=== PATIENT | female | born 1950 | race African-American/Black ===

== ENCOUNTER 2021-07-25 05:58 | Inpatient (IN) | payer MEDICARE, BC ==
[~2021-07-25] VITALS: Ht 157.5 cm; Wt 88.5 kg
[2021-07-25 07:54] LABS: CHLORIDE 108 mEq/L (98-107)
[2021-07-25] MEDS ORDERED: SODIUM CHLORIDE 0.9% 500 ML IV ONE (08:00)
[2021-07-25 08:05] LABS: BASOPHILS % 0.3 % (0.0-2.0); EOSINOPHILS % 0.2 % (0.0-5.0); HEMATOCRIT. 45.6 % (36.0-48.0); HEMOGLOBIN. 15.5 g/dL (12.0-16.0); LYMPHOCYTES % 16.7 % (20.0-50.0); MEAN CORPUSCULAR HEMOGLOBIN 27.3 pg (28.0-32.0); MEAN CORPUSCULAR VOLUME 80.3 fL (81.0-99.0); MEAN PLATELET VOLUME 9.4 fl (7.4-10.4); MONOCYTES % 8.4 % (2.0-8.0); NEUTROPHILS % 74.4 % (40.0-76.0); PLATELET 169 x1000/uL (130-400); RED BLOOD CELL COUNT 5.68 mill/uL (4.2-5.4); RED CELL DISTRIBUTION WIDTH 14.4 % (11.6-14.6)
[2021-07-25] MEDS ORDERED: DILTIAZEM HCL 5MG/ML 5ML VIAL IV ONE (08:45)
[2021-07-25] MEDS ORDERED: DILTIAZEM HCL 60MG TABLET PO ONE (08:45)
[2021-07-25] MEDS ORDERED: ASPIRIN 325MG EC TABLET PO ONE (08:45)
[2021-07-25] MEDS ORDERED: LIDOCAINE HCL 1% 10 MG/ML 10ML VIAL ONE (11:04)
[2021-07-25] MEDS ORDERED: ZOLPIDEM TARTRATE 5MG TABLET PO PRN (11:45)
[2021-07-25] MEDS ORDERED: KETOROLAC 15MG/ML VIAL IV PRN (11:45)
[2021-07-25] MEDS ORDERED: NITROGLYCERIN 0.4MG TABLET SL SL PRN (11:45)
[2021-07-25] MEDS ORDERED: ACETAMINOPHEN 325MG TABLET PO PRN ×2 (11:45)
[2021-07-25] MEDS ORDERED: CLONIDINE 0.1MG TABLET PO PRN (11:45)
[2021-07-25] MEDS ORDERED: ONDANSETRON HCL 4MG/2ML INJ IV PRN (11:45)
[2021-07-25] MEDS ORDERED: IPRATROPIUM/ALBUTEROL 0.5-3(2.5)MG/3ML NEB NEB PRN (11:45)
[2021-07-25] MEDS ORDERED: GUAIFENESIN 200MG/10ML SUGAR FREE UDC PO PRN (11:45)
[2021-07-25] MEDS ORDERED: DOCUSATE SODIUM 100MG CAPSULE PO PRN (11:45)
[2021-07-25] MEDS ORDERED: MAGNESIUM/ALUMINUM HYDROXIDE/SIMETHICONE 30ML UDC PO PRN (11:45)
[2021-07-25] MEDS ORDERED: ASPIRIN 325MG EC TABLET PO NR (11:45)
[2021-07-25] MEDS ORDERED: TRAMADOL 50MG TABLET PO PRN (11:45)
[2021-07-25] MEDS ORDERED: DILTIAZEM HCL 5MG/ML 5ML VIAL IV NR (12:00)
[2021-07-25 13:02] LABS: ETHANOL BLOOD < 10 mg/dL
[2021-07-25 13:04] LABS: TOTAL IRON BINDING CAPACITY 370 ug/dL (250-450)
[2021-07-25 13:05] LABS: LDL CHOLESTEROL 66 mg/dL (5-100)
[2021-07-25 13:06] LABS: HDL CHOLESTEROL 52 mg/dL (40-59)
[2021-07-25 13:07] LABS: T4 FREE 1.19 ng/dL (0.76-1.46)
[2021-07-25 14:29] LABS: FOLIC ACID (FOLATE) SERUM >20 ng/mL ng/mL (>5.38)
[2021-07-25] MEDS ORDERED: IOHEXOL-350 100 ML BOTTLE ONE (14:36)
[2021-07-25 14:40] LABS: VITAMIN B12 SERUM 1215 pg/mL (211-911)
[2021-07-25 16:06] LABS: CREATINE KINASE MB FRACTION 1.9 ng/mL (0.5-3.6)
[2021-07-25 19:05] VITALS: BP 155/99
[2021-07-25 19:30] VITALS: BP 148/74
[2021-07-25 20:00] VITALS: BP 148/74
[2021-07-25] MEDS: SPIRONOLACTONE 25MG TABLET PO SCH (21:50)
[2021-07-25] MEDS: FUROSEMIDE 40MG/4ML VIAL IVP SCH (21:50)
[2021-07-25] MEDS: ASCORBIC ACID 500 MG TABLET PO SCH (21:50)
[2021-07-25] MEDS: FAMOTIDINE 20MG TABLET PO SCH (21:51)
[2021-07-25] MEDS ORDERED: METO-539 MT (23:33)
[2021-07-25] MEDS ORDERED: APIX5TAB MT (23:33)
[2021-07-25 23:34] LABS: CREATINE KINASE MB FRACTION 2.9 ng/mL (0.5-3.6)
[2021-07-25] MEDS ORDERED: LEVO125T8 MT (23:35)
[2021-07-25] MEDS ORDERED: SIMV-43 MT (23:35)
[2021-07-25] MEDS ORDERED: SERT-422 MT (23:35)
[2021-07-26] VITALS: BP 160/87
[2021-07-26 04:00] VITALS: BP 145/73
[2021-07-26] MEDS: CARVEDILOL 3.125 MG TABLET PO SCH ×2 (05:49→17:57)
[2021-07-26] MEDS: APIXABAN 5 MG TABLET PO SCH ×2 (05:49→19:08)
[2021-07-26 07:13] LABS: CHLORIDE 108 mEq/L (98-107)
[2021-07-26 07:30] LABS: PHOSPHORUS 3.4 mg/dL (2.5-4.9)
[2021-07-26 07:35] LABS: BASOPHILS % 0.6 % (0.0-2.0); EOSINOPHILS % 0.9 % (0.0-5.0); HEMOGLOBIN. 15.4 g/dL (12.0-16.0); LYMPHOCYTES % 30.3 % (20.0-50.0); MEAN CORPUSCULAR HEMOGLOBIN 27.4 pg (28.0-32.0); MEAN CORPUSCULAR VOLUME 80.1 fL (81.0-99.0); MONOCYTES % 8.6 % (2.0-8.0); NEUTROPHILS % 59.6 % (40.0-76.0); RED BLOOD CELL COUNT 5.62 mill/uL (4.2-5.4); RED CELL DISTRIBUTION WIDTH 14.4 % (11.6-14.6)
[2021-07-26 08:00] VITALS: BP 135/67
[2021-07-26] MEDS: ASCORBIC ACID 500 MG TABLET PO SCH ×2 (09:37→21:44)
[2021-07-26] MEDS: ASPIRIN 325MG EC TABLET PO SCH (09:37)
[2021-07-26] MEDS: SPIRONOLACTONE 25MG TABLET PO SCH ×2 (09:38→21:44)
[2021-07-26] MEDS: FAMOTIDINE 20MG TABLET PO SCH ×2 (09:38→21:44)
[2021-07-26] MEDS: FUROSEMIDE 40MG/4ML VIAL IVP SCH ×2 (09:38→21:43)
[2021-07-26] MEDS: ZINC SULFATE 220 MG ( 50 ) CAPSULE PO SCH (09:38)
[2021-07-26 12:00] VITALS: BP 134/93
[2021-07-26 13:48] LABS: PLATELET 127 x1000/uL (130-400)
[2021-07-26] MEDS ORDERED: DIGOXIN 500MCG/2ML AMP IV NR (14:27)
[2021-07-26 16:00] VITALS: BP 144/75
[2021-07-26 20:00] VITALS: BP 143/66
[2021-07-27] VITALS: BP 134/67
[2021-07-27 04:00] VITALS: BP 129/75
[2021-07-27] MEDS: APIXABAN 5 MG TABLET PO SCH ×2 (06:37→17:12)
[2021-07-27] MEDS: CARVEDILOL 3.125 MG TABLET PO SCH ×2 (06:45→17:13)
[2021-07-27 08:00] VITALS: BP 158/68
[2021-07-27] MEDS: ASPIRIN 325MG EC TABLET PO SCH (08:19)
[2021-07-27] MEDS: FAMOTIDINE 20MG TABLET PO SCH ×2 (08:19→22:48)
[2021-07-27] MEDS: LEVOTHYROXINE SODIUM 125MCG TABLET PO SCH (08:19)
[2021-07-27] MEDS: FUROSEMIDE 40MG/4ML VIAL IVP SCH ×2 (08:19→22:48)
[2021-07-27] MEDS: ZINC SULFATE 220 MG ( 50 ) CAPSULE PO SCH (08:19)
[2021-07-27] MEDS: ASCORBIC ACID 500 MG TABLET PO SCH ×2 (08:19→22:50)
[2021-07-27] MEDS: SPIRONOLACTONE 25MG TABLET PO SCH ×2 (08:19→22:49)
[2021-07-27 12:00] VITALS: BP 118/73
[2021-07-27 16:00] VITALS: BP 126/44
[2021-07-27 20:00] VITALS: BP 138/68
[2021-07-28] VITALS: BP 120/66
[2021-07-28 04:00] VITALS: BP 119/75
[2021-07-28] MEDS: CARVEDILOL 3.125 MG TABLET PO SCH ×2 (05:37→17:14)
[2021-07-28] MEDS: APIXABAN 5 MG TABLET PO SCH ×2 (05:37→17:14)
[2021-07-28 08:00] VITALS: BP 131/83
[2021-07-28] MEDS: FUROSEMIDE 40MG/4ML VIAL IVP SCH ×2 (08:41→21:12)
[2021-07-28] MEDS: LEVOTHYROXINE SODIUM 125MCG TABLET PO SCH (08:41)
[2021-07-28] MEDS: ZINC SULFATE 220 MG ( 50 ) CAPSULE PO SCH (08:41)
[2021-07-28] MEDS: SPIRONOLACTONE 25MG TABLET PO SCH ×2 (08:42→21:11)
[2021-07-28] MEDS: FAMOTIDINE 20MG TABLET PO SCH ×2 (08:42→21:12)
[2021-07-28] MEDS: ASPIRIN 325MG EC TABLET PO SCH (08:42)
[2021-07-28] MEDS: ASCORBIC ACID 500 MG TABLET PO SCH ×2 (08:44→21:11)
[2021-07-28 12:00] VITALS: BP 106/43
[2021-07-28 16:00] VITALS: BP 126/62
[2021-07-28] MEDS ORDERED: NALOXONE HCL 0.4MG/ML VIAL IV PRN (17:30)
[2021-07-28 20:00] VITALS: BP 123/73
[2021-07-29] VITALS: BP 109/60
[2021-07-29 04:00] VITALS: BP 107/72
[2021-07-29] MEDS: CARVEDILOL 3.125 MG TABLET PO SCH ×2 (05:07→08:24)
[2021-07-29] MEDS: APIXABAN 5 MG TABLET PO SCH (05:08)
[2021-07-29 08:00] VITALS: BP 148/81
[2021-07-29] MEDS: ZINC SULFATE 220 MG ( 50 ) CAPSULE PO SCH (08:24)
[2021-07-29] MEDS: SPIRONOLACTONE 25MG TABLET PO SCH (08:24)
[2021-07-29] MEDS: FUROSEMIDE 40MG/4ML VIAL IVP SCH (08:24)
[2021-07-29] MEDS: LEVOTHYROXINE SODIUM 125MCG TABLET PO SCH (08:24)
[2021-07-29] MEDS: ASPIRIN 325MG EC TABLET PO SCH (08:24)
[2021-07-29] MEDS: ASCORBIC ACID 500 MG TABLET PO SCH (08:24)
[2021-07-29] MEDS: FAMOTIDINE 20MG TABLET PO SCH (08:25)
[2021-07-29] MEDS ORDERED: FURO-151 MT (10:43)
[2021-07-29] MEDS ORDERED: ASPI-867 PO (10:43)
[2021-07-29] MEDS ORDERED: FAMO20TA8 PO (10:43)
[2021-07-29] MEDS ORDERED: SPIR25TA PO (10:43)
[2021-07-29 12:00] VITALS: BP 122/66
[2021-07-29 12:11] VITALS: BP 122/66
== END 2021-07-29 18:19 | disposition home health service (06) | DRG 280 ==
LOC: ER 05:58 → EDBEDREQTM 09:40 → EDBEDREQ 09:40 → EDBEDREQTM 09:57 → SUPCPDRO 11:40 → 6WST 19:06
PROVIDERS: ADMIT Internal Medicine; ATTEND Internal Medicine
PROC: 05HY33Z Insertion of Infusion Device into Upper Vein, Percutaneous Approach (ICD-10-PCS; principal; 2021-07-25)
PROC: B54NZZA Ultrasonography of Left Upper Extremity Veins, Guidance (ICD-10-PCS; 2021-07-25)
DX: I21.4 Non-ST elevation (NSTEMI) myocardial infarction (principal); I50.33 Acute on chronic diastolic (congestive) heart failure; I11.0 Hypertensive heart disease with heart failure; I48.0 Paroxysmal atrial fibrillation; I35.1 Nonrheumatic aortic (valve) insufficiency; E78.5 Hyperlipidemia, unspecified; R09.02 Hypoxemia; Z20.822 Contact with and (suspected) exposure to COVID-19; E78.00 Pure hypercholesterolemia, unspecified; K76.1 Chronic passive congestion of liver; F32.A Depression, unspecified; E03.9 Hypothyroidism, unspecified; Z90.13 Acquired absence of bilateral breasts and nipples; Z85.3 Personal history of malignant neoplasm of breast; Z79.899 Other long term (current) drug therapy; Z79.01 Long term (current) use of anticoagulants; Z88.0 Allergy status to penicillin; R74.01 Elevation of levels of liver transaminase levels
CPT/HCPCS: 36415; 71045; 71275; 76937; 80053; 80061; 80320; 82550; 82553; 82607; 82746; 83036; 83540; 83550; 83735; 83880; 84100; 84145; 84439; 84443; 84484; 85025; 85379; 87426; 93005; 93306; 93970; 94618; 97116; 97162; 97166; 97535; 99285; C1725; J1160; J1940; J3490; J7030; Q9967; G0480